=== PATIENT | male | born 1940 ===

== ENCOUNTER 2024-08-14 16:00 | Outpatient (CLI) | payer MEDICARE, SELFPAY ==
[2024-08-14 16:11] LABS: Microscopic, Urine URINE MICROSCOPIC (MICROSCOPIC)
[2024-08-14 18:56] LABS: Appearance,Urine CLEAR (Clear); Bilirubin,Urine Negative (Negative); Blood, Urine Negative (Negative); Color,Urine YELLOW (Yellow); Glucose,Urine (UA) Negative (Negative); Ketones,Urine Negative (Negative); Leukocyte Esterase,Urine TRACE (Negative); Nitrate,Urine Negative (Negative); Protein,Urine Negative (Negative); Urobilinogen,Urine 0.2 EU/dl (0.2)
[2024-08-14 20:32] LABS: Squamous Epithelial Cell,Urine Occasional #/hpf (0-5)
[2024-08-14 20:33] LABS: Bacteria,Urine 1+ /lpf
== END 2024-08-14 23:59 | disposition home or self-care (01) ==
LOC: LAB 16:08
PROVIDERS: Visit Provider Student in an Organized Health Care Education/Training Program
DX: N31.9 Neuromuscular dysfunction of bladder, unspecified (principal)
CPT/HCPCS: 81001; 87086